=== PATIENT | female | born 1940 | race Caucasian/White ===

== ENCOUNTER → 2016-10-03 | Outpatient (CLI) | payer MEDICARE ==
[~2016-10-03] MED LIST: ALEN70TA5 PO; LEVO75TA PO; NITR50CA PO; NITR50CA11 PO; SIMV20TA3 PO; SULF1TAB24 PO
[2016-10-03 10:16] LABS: HEMOGLOBIN 14.9 g/dL (11.7-16.4)
[2016-10-03 10:27] LABS: ASPARTATE AMINO TRANSFERASE 16 U/L (15-37); BLOOD UREA NITROGEN 17 mg/dL (7-18)
== END | disposition home or self-care (01) ==
LOC: STAR 09:15
PROVIDERS: ATTEND Urology
DX: N20.2 Calculus of kidney with calculus of ureter (principal)
CPT/HCPCS: 36415; 80053; 81003; 85025; 87086

== ENCOUNTER 2017-01-13 13:35 | Emergency (ER) | payer MEDICARE ==
[~2017-01-13] VITALS: Ht 162.6 cm; Wt 80.1 kg
[2017-01-13] MEDS ORDERED: KETOROLAC 30 MG/1 ML ONE (14:56)
[2017-01-13] MEDS ORDERED: KETOROLAC 30 MG/1 ML IM ONE (15:00)
[2017-01-13 15:50] LABS: ASPARTATE AMINO TRANSFERASE 16 U/L (15-37); BLOOD UREA NITROGEN 17 mg/dL (7-18)
[2017-01-13 17:20] VITALS: BP 157/74
== END 2017-01-13 17:21 | disposition home or self-care (01) ==
LOC: ED 15:44
DX: N13.2 Hydronephrosis with renal and ureteral calculous obstruction (principal); E78.5 Hyperlipidemia, unspecified
CPT/HCPCS: 36415; 74176; 80053; 81001; 85025; 96372; 99285; J1885

== ENCOUNTER 2017-01-15 13:20 | Observation (INO) | payer MEDICARE ==
[~2017-01-15] VITALS: Ht 163.8 cm; Wt 81.2 kg
[2017-01-15] MEDS ORDERED: PLEASE ENTER HEIGHT AND WEIGHT MC SCH (14:00)
[2017-01-15] MEDS ORDERED: HYDR-2442 PO (14:17)
[2017-01-15 14:25] VITALS: BP 144/84
[2017-01-15] MEDS: LACTATED RINGERS 1,000 ML IV SCH ×2 (14:44→14:45)
[2017-01-15] MEDS ORDERED: FENTANYL PF 250 MCG/5ML ONE (15:30)
[2017-01-15] MEDS ORDERED: MIDAZOLAM 1 MG/ML, 2ML ONE (15:30)
[2017-01-15] MEDS ORDERED: DEXAMETHASONE 4 MG/ML, 1ML ONE (15:45)
[2017-01-15] MEDS ORDERED: ONDANSETRON 2MG/ML, 2ML ONE (15:45)
[2017-01-15] MEDS ORDERED: PROPOFOL 10 MG/ML, 20ML ONE (15:45)
[2017-01-15] MEDS ORDERED: SUCCINYLCHOLINE 20 MG/ML, 10ML ONE (15:45)
[2017-01-15] MEDS ORDERED: CEFAZOLIN 1,000 MG ONE (15:45)
[2017-01-15] MEDS ORDERED: ROCURONIUM 10 MG/ML ONE (15:45)
[2017-01-15] MEDS ORDERED: LABETALOL 5MG/ML, 20ML IV PRN (16:30)
[2017-01-15] MEDS ORDERED: METOCLOPRAMIDE 5 MG/ML, 2ML IV PRN (16:30)
[2017-01-15] MEDS ORDERED: HYDROmorphone 1 MG/ML, 1ML IV PRN (16:30)
[2017-01-15] MEDS ORDERED: ACETAMINOPHEN 325 MG TABLET PO PRN (16:30)
[2017-01-15] MEDS ORDERED: hydrALAzine 20 MG/ML, 1ML IV PRN (16:30)
[2017-01-15] MEDS ORDERED: FENTANYL PF 100 MCG/2ML IV PRN (16:30)
[2017-01-15] MEDS ORDERED: EPHEDRINE 50 MG/ML, 1ML IVPush PRN (16:30)
[2017-01-15] MEDS ORDERED: HYDROcodone/APAP 7.5-325MG/15ML UDC PO PRN (16:30)
[2017-01-15] MEDS ORDERED: ALBUTEROL SULFATE 2.5 MG/3 ML NPPB PRN (16:30)
[2017-01-15] MEDS ORDERED: METOPROLOL 1 MG/ML, 5ML IV PRN (16:30)
[2017-01-15] MEDS ORDERED: OXYcodone 5 MG/5 ML ORAL.SOL UDC PO PRN (16:30)
[2017-01-15] MEDS ORDERED: MEPERIDINE/PF 25MG/0.5ML ONE (17:41)
[2017-01-15] MEDS ORDERED: MEPERIDINE/PF 25MG/0.5ML IVPush PRN (18:00)
[2017-01-15] MEDS ORDERED: HYDROcodone/APAP 5/325 TABLET PO PRN (20:00)
[2017-01-15] MEDS ORDERED: ONDANSETRON 2MG/ML, 2ML IVPush PRN (20:00)
[2017-01-15] MEDS ORDERED: morphine SULFATE 10 MG/ML, 1ML IVPush PRN ×2 (20:00→23:19)
[2017-01-15 20:15] VITALS: BP 119/67
[2017-01-15] MEDS ORDERED: SIMVASTATIN 20 MG TABLET PO SCH (21:00)
[2017-01-16 00:50] VITALS: BP 92/48
[2017-01-16 04:50] VITALS: BP 104/55
[2017-01-16] MEDS ORDERED: LEVOTHYROXINE 75 MCG TABLET PO SCH (06:00)
[2017-01-16 06:12] LABS: BLOOD UREA NITROGEN 18 mg/dL (7-18)
[2017-01-16 08:56] VITALS: BP 106/65
[2017-01-16] MEDS ORDERED: NITROFURANTOIN 50 MG CAPSULE PO SCH (09:00)
[2017-01-16 10:52] VITALS: BP 102/62
[2017-01-16] MEDS ORDERED: HYDR-3240 PO (11:15)
[2017-01-19] MEDS ORDERED: ALENDRONATE 70 MG TABLET PO SCH (06:30)
== END 2017-01-16 11:35 | disposition home or self-care (01) ==
LOC: OUT 13:20 → INTOOBSV 19:56 → 4NOR 19:56 → OUT 21:14 → DCLOUNGE 01-16 11:05
PROVIDERS: ADMIT Urology; ATTEND Urology
DX: N13.2 Hydronephrosis with renal and ureteral calculous obstruction (principal); E78.00 Pure hypercholesterolemia, unspecified; N20.0 Calculus of kidney; N20.1 Calculus of ureter
CPT/HCPCS: 36415; 52356; 71010; 74000; 76001; 80048; 82360; 85025; 88300; 93005; C1758; C2617; G0378; J0330; J0690; J1100; J2175; J2250; J2405; J2704; J3010; J7120

== ENCOUNTER → 2017-02-26 | Outpatient (CLI) | payer MEDICARE, OTHER ==
[~2017-02-26] MED LIST changes: +HYDR-2442 PO; +HYDR-3240 PO
== END | disposition home or self-care (01) ==
LOC: CFH 09:32
PROVIDERS: ATTEND Family Medicine
DX: Z13.820 Encounter for screening for osteoporosis (principal); M81.0 Age-related osteoporosis without current pathological fracture; N95.9 Unspecified menopausal and perimenopausal disorder
CPT/HCPCS: 77080

== ENCOUNTER → 2017-11-17 | Outpatient (CLI) | payer MEDICARE, OTHER | END | disposition home or self-care (01) | LOC: RAD 09:34 | PROVIDERS: ATTEND Urology | DX: N20.0 Calculus of kidney (principal) | CPT/HCPCS: 74018 ==

== ENCOUNTER 2021-02-24 09:48 | Outpatient (CLI) | payer MEDICARE ==
[~2021-02-24 09:48] MED LIST changes: -ALEN70TA5 PO; +ALEN70TA77 PO; +HYDR-2214 PO; -HYDR-2442 PO; -HYDR-3240 PO; +HYDR-3565 PO; +SIMV20TA19 PO; -SIMV20TA3 PO; +SULF-23 PO; -SULF1TAB24 PO
== END 2021-02-24 23:59 | disposition home or self-care (01) ==
LOC: CFH 09:48
PROVIDERS: ATTEND Family Medicine
DX: M81.0 Age-related osteoporosis without current pathological fracture (principal)
CPT/HCPCS: 77080